=== PATIENT | male | born 1960 | race Caucasian/White ===

== ENCOUNTER → 2019-04-24 15:56 | Outpatient (CLI) | payer OTHER, SELFPAY ==
--- NOTE | 2019-04-24 | DI.US.S_ITS ---
PROCEDURE: US THYROID INDICATIONS: Nontoxic single thyroid nodule TECHNIQUE: Real-time scanning was performed of the thyroid gland, with image documentation. COMPARISON: [facility], [place], THYROID, 01/14/2018, 7:20. [facility], [place], THYROID, 07/13/2017, 15:54. FINDINGS: Right: Thyroid lobe measures 5.5 x 1.7 x 2.1 cm, and is homogeneous in echotexture. Left: Thyroid lobe measures 5.0 x 1.7 x 1.8 cm, and is homogenous in echotexture. Isthmus: 6.0 mm thick. Nodule number: 1 Location: Right mid Size: Unchanged at 0.6 x 0.4 x 0.5 cm. Composition: Solid Echogenicity: Hypoechoic Shape: wider than tall. Margins: Smooth Echogenic foci: None Total points: 4 ACR TI-RADS category: Moderately suspicious IMPRESSION: Stable moderately suspicious subcentimeter right thyroid nodule. Recommend continued followup ultrasound as detailed below. ACR TI-RADS definitions and recommendations: TI-RADS 1 (benign): 0 points. FNA not needed. TI-RADS 2 (not suspicious): 2 points. FNA not needed. TI-RADS 3 (mildly suspicious): 3 points. * FNA if 2.5 cm or larger, follow up if 1.5 cm or larger (at 1, 3, and 5 years). TI-RADS 4 (moderately suspicious): 4-6 points. * FNA if 1.5 cm or larger, follow up if 1 cm or larger (at 1, 2, 3, and 5 years). TI-RADS 5 (highly suspicious): 7 points or more. * FNA if 1 cm or larger, follow up if 0.5 cm or larger (every year for 5 years). Dictated by: Arnold WOLFE Interpreted: Chiara Harris MD on 04/24/2019 at 17:12 Approved by: Chiara Harris M.D. on 04/24/2019 at 17:23
== END ==
PROVIDERS: PCP Internal Medicine; Visit Provider Internal Medicine
DX: E04.1 Nontoxic single thyroid nodule (principal)
CPT/HCPCS: 76536